=== PATIENT | male | born 1970 | race Caucasian/White ===

== ENCOUNTER → 2019-01-22 | Outpatient (CLI) | payer MEDICAID ==
[~2019-01-22] MED LIST: CYSTO-CONRAY II 17.2% 250ML VIAL (Q9958) As Ordered ONE
--- NOTE | 2019-01-23 14:55 | REP ---
[facility]01/22/2019: Clinical history: Urinary retention There is a suprapubic catheter. Findings: Retrograde filling of the bladder via the suprapubic catheter to a volume of 500 ml as of Cysto-Conray. The distended bladder shows multiple diverticula and lobulated margins. Bilateral filled oblique images were obtained and AP filling view. No evidence of reflux on any of those views. Multiple images were performed with the patient attention to void. Right and left obliques were utilized. Distal prostatic and some of the membranous and volvulus urethra are seen on one oblique image and on the opposite oblique the volvulus urethra with a verumontanum was also noted. However, no continuous strain could be obtained despite the patient's best efforts. Bilateral posterior oblique images show no reflux and diverticula. The postvoid image obtained after catheter drainage showed there was no evidence of ureteral reflux or contrast in either collecting system. There was a postvoid residual. Impression: 1. The patient unable to void a continuous strain with only trace amounts of contrast in the posterior and anterior urethra. The urinary stream was never able to be seen reaching the urethral meatus. 2. Lobulated contour of the bladder. Bilateral posterior oblique images with diverticula near the ureteral insertions. Electronically Signed by Israel Gonzalez MD 01/24/2019 09:09 A
== END ==
LOC: M RADPRO 13:51
PROVIDERS: ATTEND Urology
DX: R33.9 Retention of urine, unspecified (principal)
CPT/HCPCS: 51600; 74455; Q9958